=== PATIENT | male | born 1935 | race Two or more races ===

== ENCOUNTER 2018-08-01 16:28 | Emergency (ER) | payer SELFPAY ==
[~2018-08-01] VITALS: Ht 180.3 cm; Wt 74.8 kg
--- NOTE | 2018-08-01 16:35 | NUR ---
ED Nurse Note: Pt BIBA from home due to being weak and falls x 6 within 1 week. Pt HR in the range of 40-50. Per paramedics, no trauma reported from family. No head trauma noted. AOx3, speaks Pashto. Other VSS. Will cont to monitor.
--- NOTE | 2018-08-01 16:41 | NUR ---
ED Nurse Note: Blood drawn and sent to lab.
[2018-08-01] MEDS: Sodium Chloride 550 ML IV SCH ×2 (16:45→20:22)
[2018-08-01] MEDS ORDERED: FEOSOL1 TAB ORAL (17:03)
[2018-08-01] MEDS ORDERED: SYNTHROID200 MC1 PO (17:03)
[2018-08-01] MEDS ORDERED: LIPITOR80 MG ORAL (17:03)
[2018-08-01] MEDS ORDERED: CETIRIZINE HCL10 M1 PO (17:03)
--- NOTE | 2018-08-01 17:25 | Emergency Room Report ---
History of Present Illness General Chief Complaint: Multiple Trauma/Fall Source: Patient, Family Member, EMS Present Illness HPI Patient fell. He's been feeling weak. He denies any pain in his body from the fall. Patient denies chest pain, cough, shortness of breath, palpitations, nausea, vomiting, diarrhea. Family state he has had several syncopal episodes in the past months. He fell on L side a week ago. Evaluated by PMD a week ago with labs and told "everything OK". Allergies: Coded Allergies: No Known Allergies (Unverified , 08/01/18) Patient History Past Medical History: see triage record Social History: Denies: smoking, alcohol use Social History Narrative - speaks Vincentian Reviewed Nursing Documentation: PMH: Agreed; PSxH: Agreed Nursing Documentation-PMH Past Medical History: No History, Except For Review of Systems All Other Systems: negative except mentioned in HPI Physical Exam Vital Signs Date Time Temp Pulse Resp B/P (MAP) Pulse Ox O2 Delivery O2 Flow Rate FiO2 08/01/18 16:25 98.4 51 16 116/59 (78) 100 Room Air Sp02 EP Interpretation: reviewed, normal General Appearance: well appearing, no apparent distress, GCS 15 Head: normocephalic, other - Nontender Eyes: bilateral eye PERRL, bilateral eye conjunctivae pale ENT: moist mucus membranes Neck: full range of motion, supple, no bony tend Respiratory: chest non-tender, lungs clear, normal breath sounds Cardiovascular #1: bradycardia, irregularly irregular Cardiovascular #2: 2+ radial (R) Gastrointestinal: normal inspection, normal bowel sounds, non tender, no mass, non-distended Musculoskeletal: back normal, normal range of motion, pelvis stable Neurologic: alert, motor strength/tone normal, DTRs symmetric, sensory intact, speech normal, other - halting gait, oriented - X2 Psychiatric: mood/affect normal Skin: warm/dry, pallor Medical Decision Making Diagnostic Impression: Primary Impression: Subdural hematoma Additional Impressions: Bradycardia Atrial fibrillation Qualified Codes: I48.91 - Unspecified atrial fibrillation Anemia Qualified Codes: D64.9 - Anemia, unspecified Hyponatremia Syncope Qualified Codes: R55 - Syncope and collapse ER Course Patient presents post fall weakness. Differential includes acute microinfarction, pulmonary embolus, brain bleed, anemia amongst others. Patient will be evaluated with EKG, chest x-ray and labs. Patient is placed on a cardiac rehabilitation specialist. He denies any pain at this time. EKG with atrial fibrillation and bradycardia. No hyperacute changes. Chest x- ray no infiltrates or fractures. Labs with anemia and hyponatremia. Called by radiologist. + Subdural. Calling [facility]. 19:[address] Daren Gentile. Accepts - requests Nicardipine (if SBP > 160) and Keppra. 20:25 Blood pressure not requiring nicardipine. Pulse improved, tolerating mild bradycardia without chest pain or dizziness. Tolerated Keppra well. Discussed transfer with family. Patient transferred to [facility]. Laboratory Tests Test 08/01/18 17:00 White Blood Count 5.7 K/UL (4.8-10.8) Red Blood Count 2.88 M/UL (4.70-6.10) L Hemoglobin 9.0 G/DL (14.2-18.0) L Hematocrit 25.6 % (42.0-52.0) L Mean Corpuscular Volume 89 FL (80-99) Mean Corpuscular Hemoglobin 31.1 PG (27.0-31.0) H Mean Corpuscular Hemoglobin Concent 35.1 G/DL (32.0-36.0) Red Cell Distribution Width 11.4 % (11.6-14.8) L Platelet Count 248 K/UL (150-450) Mean Platelet Volume 5.2 FL (6.5-10.1) L Neutrophils (%) (Auto) 57.3 % (45.0-75.0) Lymphocytes (%) (Auto) 33.0 % (20.0-45.0) Monocytes (%) (Auto) 7.0 % (1.0-10.0) Eosinophils (%) (Auto) 1.4 % (0.0-3.0) Basophils (%) (Auto) 1.4 % (0.0-2.0) Prothrombin Time 10.3 SEC (9.30-11.50) Prothrombin Time INR 1.0 (0.9-1.1) PTT 27 SEC (23-33) Sodium Level 122 MMOL/L (136-145) L Potassium Level 3.7 MMOL/L (3.5-5.1) Chloride Level 88 MMOL/L (98-107) L Carbon Dioxide Level 23 MMOL/L (21-32) Anion Gap 11 mmol/L (5-15) Blood Urea Nitrogen 12 mg/dL (7-18) Creatinine 0.8 MG/DL (0.55-1.30) Estimate Glomerular Filtration Rate mL/min (>60) Glucose Level 102 MG/DL (74-106) Calcium Level 9.2 MG/DL (8.5-10.1) Magnesium Level 1.8 MG/DL (1.8-2.4) Total Bilirubin 0.4 MG/DL (0.2-1.0) Aspartate Amino Transferase (AST) 25 U/L (15-37) Alanine Aminotransferase (ALT) 18 U/L (12-78) Alkaline Phosphatase 63 U/L (46-116) Troponin I 0.007 ng/mL (0.000-0.056) Pro-B-Type Natriuretic Peptide 751 pg/mL (0-125) H Total Protein 7.5 G/DL (6.4-8.2) Albumin 4.0 G/DL (3.4-5.0) Globulin 3.5 g/dL Albumin/Globulin Ratio 1.1 (1.0-2.7) EKG Diagnostic Results Rate: bradycardiac Rhythm: other - a fib ST Segments: no acute changes - prolonged QT Rhythm Strip Diag. Results EP Interpretation: yes Rhythm: no PVC's, no ectopy, other - scott a fib Chest X-Ray Diagnostic Results Chest X-Ray Diagnostic Results : Chest X-Ray Ordered: Yes # of Views/Limited/Complete: 1 View Indication: Other EP Interpretation: Yes Interpretation: no consolidation, no effusion, no pneumothorax, other - Aortic calcification Electronically Signed by: Electronically signed by Mk Lester MD CT/MRI/US Diagnostic Results CT/MRI/US Diagnostic Results : Imaging Test Ordered: head Impression subdural hematoma L parietal area Last Vital Signs Date Time Temp Pulse Resp B/P (MAP) Pulse Ox O2 Delivery O2 Flow Rate FiO2 08/02/18 02:15 98.4 52 16 150/84 99 Room Air Status: improved Disposition: XFER SHT-TRM HOSP Condition: Serious Mk Lester MD Aug 01, 2018 17:25
[2018-08-01 17:32] LABS: BASOPHILS % (AUTO) 1.4 % (0.0-2.0); EOSINOPHILS % (AUTO) 1.4 % (0.0-3.0); HEMATOCRIT 25.6 % (42.0-52.0); MEAN CORPUSCULAR VOLUME 89 FL (80-99); NEUTROPHILS % (AUTO) 57.3 % (45.0-75.0); PLATELET COUNT 248 K/UL (150-450); RED BLOOD COUNT 2.88 M/UL (4.70-6.10); RED CELL DISTRIBUTION WIDTH 11.4 % (11.6-14.8); WHITE BLOOD COUNT 5.7 K/UL (4.8-10.8)
[2018-08-01 17:39] VITALS: BP 130/60
[2018-08-01 18:19] LABS: ANION GAP 11 mmol/L (5-15); BLOOD UREA NITROGEN 12 mg/dL (7-18); CALCIUM 9.2 MG/DL (8.5-10.1); CARBON DIOXIDE 23 MMOL/L (21-32); CHLORIDE 88 MMOL/L (98-107); CREATININE 0.8 MG/DL (0.55-1.30); POTASSIUM 3.7 MMOL/L (3.5-5.1); SODIUM 122 MMOL/L (136-145)
[2018-08-01 18:31] LABS: ALANINE AMINOTRANSFERASE 18 U/L (12-78); ALBUMIN/GLOBULIN RATIO 1.1 (1.0-2.7); ALKALINE PHOSPHATASE 63 U/L (46-116); ASPARTATE AMINO TRANSFERASE 25 U/L (15-37); BILIRUBIN,TOTAL 0.4 MG/DL (0.2-1.0)
--- NOTE | 2018-08-01 19:18 | NUR ---
HAND-OFF: Report given to ELLIE Frias.
[2018-08-01 19:32] VITALS: BP 162/78
--- NOTE | 2018-08-01 19:34 | NUR ---
ER Nurse Note: Pt awake, a&ox3, pallor in color,, cool to touch, no signs of external distress. Pt HR averages 50 to 60s, MD aware. Radial pulses bilateral strong. Pt has bruise on abd, LT arm, Lt foot; yellow and green in color from previous falls. Pt seen by ERMD and results explained. Pt awaiting transfer for higher level of care. SLIV LT wrist; patent. Pt has not provided urine. All safey measures met; will continue to montior.
[2018-08-01 20:27] LABS: APPEARANCE,URINE CLEAR; BILIRUBIN, URINE NEGATIVE (NEGATIVE); COLOR,URINE PALE YELLOW; GLUCOSE, URINE (UA) NEGATIVE (NEGATIVE); KETONES,URINE 2+ (NEGATIVE); LEUKOCYTE ESTERASE ,URINE NEGATIVE (NEGATIVE); NITRITE,URINE NEGATIVE (NEGATIVE); PH,URINE 6 (4.5-8.0); PROTEIN,URINE 1+ (NEGATIVE); UROBILINOGEN,URINE NORMAL MG/DL (0.0-1.0)
[2018-08-01] MEDS ORDERED: levETIRAcetam 1,000mg/NS100ml 100 ML IVPB ONE (20:30)
--- NOTE | 2018-08-01 21:30 | NUR ---
ED Nurse Note: Through translation, pt is alert and oriented x 4; transfer explained. Pt's Anastasiia vazquez ([phone]) called to inform her that pt will be transferred to [facility].
[2018-08-01 21:49] VITALS: BP 132/71
--- NOTE | 2018-08-01 23:00 | NUR ---
ER Nurse Note: Report given to ELLIE Rubalcava in [facility] for higher level of care. [facility] ETA changed to 0025. Pt stable, asleep, BP 146/62. All safety measures met; will continue to montior.
[2018-08-02 00:14] VITALS: BP 146/82
[2018-08-02] MEDS: Sodium Chloride 550 ML IV SCH (01:47)
[2018-08-02 02:15] VITALS: BP 150/84
--- NOTE | 2018-08-02 02:18 | NUR ---
ER Nurse Note: Updated Gini RN at [facility] that pt is in route. Pt a&ox4, HR 52 BP <160 systolic. Pt left with all belongings.
--- NOTE | 2018-08-02 08:28 | Diagnostic Imaging Report ---
Indications: Weakness, status post fall Technique: Spiral acquisitions obtained through the brain. Angled axial and coronal 5 x 5 mm slices were reconstructed. Total dose length product 1417.56 mGycm. CTDI vol(s) 70.38 mGy. Dose reduction achieved using automated exposure control Comparison: None. Findings: There is a left frontal and parietal convexity subdural hematoma which measures approximately 9 mm in thickness. This is slightly hyperattenuating to brain parenchyma. This results in some mass effect, with approximately 6 mm of left right midline shift the basilar cisterns are patent. There is a hyperattenuating suprasellar mass which measures 15 mm transverse by 16 mm AP by 11 mm craniocaudad. This results in slight upward displacement of the adjacent structures. There is generalized age-related enlargement of ventricles and extra-axial CSF spaces. 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 The calvarium is intact. The orbits and sinuses are unremarkable. The mastoids are clear. Impression: Positive for 9 6 mm thick left frontal and parietal convexity subacute subdural hematoma, resulting in 6 mm of midline shift 15 x 16 x 11 mm suprasellar mass. This is hyperattenuating, likely represents a meningioma. 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
--- NOTE | 2018-08-02 12:49 | Diagnostic Imaging Report ---
Indication: Trauma, pain Technique: One view of the chest Comparison: none Findings: No acute infiltrates, effusions, or congestion. Tortuous calcified aorta. Normal heart size. Upper mediastinum unremarkable. Impression: No acute process.
== END 2018-08-02 02:18 | disposition short-term general hospital (02) ==
LOC: EDBD 16:28 → EDBEDREQ 16:53 → EMR 18:53
DX: S06.5X9A Traumatic subdural hemorrhage with loss of consciousness of unspecified duration, initial encounter (principal); I48.91 Unspecified atrial fibrillation; D64.9 Anemia, unspecified; E87.1 Hypo-osmolality and hyponatremia; R55 Syncope and collapse; W19.XXXA Unspecified fall, initial encounter; Y92.9 Unspecified place or not applicable
CPT/HCPCS: 36415; 70450; 71045; 80053; 80162; 81001; 83735; 83880; 84484; 85025; 85610; 85730; 86850; 86900; 86901; 87086; 93005; 96361; 96374; 99285; J1953; J7040